=== PATIENT | female | born 1985 | race Two or more races ===

== ENCOUNTER 2019-01-09 16:55 | Outpatient (CLI) | payer BC, OTHER | END 2019-01-09 23:59 | disposition home or self-care (01) | LOC: LAB 16:55 | PROVIDERS: ATTEND Nurse Practitioner | DX: O20.9 Hemorrhage in early pregnancy, unspecified (principal); Z3A.00 Weeks of gestation of pregnancy not specified | CPT/HCPCS: 36415; 84702 ==

== ENCOUNTER 2019-01-13 12:04 | Emergency (ER) | payer OTHER ==
[~2019-01-13] VITALS: Ht 162.6 cm; Wt 99.2 kg
--- NOTE | 2019-01-13 12:31 | NUR ---
FIRST CONTACT WITH PT. Pt presents to ED from Obgyn Dr. Moody for medication for ectopic . Pt denies any pain at this time. NADN. Pt resting on gurney. Called L&D to verify administration of medication. L&D states ED administers medication. Pt states, "Dr. Moody wants the labs done first before recieving the methotrexate." ED PA aware. Call light within reach, all safety measures in place. Warm blanket and pillow offered for comfort measures.
--- NOTE | 2019-01-13 12:49 | NUR ---
Pt ambulates with steady gait and balance to restroom for UA.
[2019-01-13 12:58] LABS: BASOPHILS # (AUTO) 0.05 x10^3/uL (0-0.1); BASOPHILS % (AUTO) 1 % (0-1); EOSINOPHILS # (AUTO) 0.11 x10^3/uL (0-0.4); EOSINOPHILS % (AUTO) 2 % (1-7); LYMPHOCYTES # (AUTO) 3.39 x10^3/uL (1-3.4); LYMPHOCYTES % (AUTO) 46 % (22-44); MD NO; MEAN CORPUSCULAR HEMOGLOBIN 29.3 pg (27.0-34.8); MEAN CORPUSCULAR HGB CONC 33.3 g/dL (32.4-35.8); MEAN CORPUSCULAR VOLUME 87.8 fL (80-100); MEAN PLATELET VOLUME 7.9 fL (7.4-10.4); MONOCYTES # (AUTO) 0.48 x10^3/uL (0.2-0.8); MONOCYTES % (AUTO) 6 % (2-9); NEUTROPHILS # (AUTO) 3.39 x10^3/uL (1.8-6.8); NEUTROPHILS % (AUTO) 46 % (42-75); PLATELET COUNT 375 x10^3/uL (130-400); RED BLOOD COUNT 4.62 x10^6/uL (3.82-5.3); RED CELL DISTRIBUTION WIDTH 14.6 % (9.6-15.2)
[2019-01-13] MEDS ORDERED: SODIUM CHLORIDE FLUSH 10ML SYR IVF ONE (13:00)
[2019-01-13 13:08] LABS: ALBUMIN 3.6 g/dL (3.4-5.0); ANION GAP 7 mmol/L (5-15); CALCIUM 8.9 mg/dL (8.5-10.1); CHLORIDE 110 mmol/L (98-107)
[2019-01-13 13:14] LABS: CULTURE INDICATED? YES; MICROSCOPIC INDICATED
[2019-01-13 13:26] LABS: ALANINE AMINOTRANSFERASE 20 U/L (12-78); ALKALINE PHOSPHATASE 86 U/L (45-117); BILIRUBIN,TOTAL 0.4 mg/dL (0.2-1.0); CREATININE 0.73 mg/dL (0.55-1.02); TOTAL PROTEIN 7.2 g/dL (6.4-8.2)
[2019-01-13] MEDS ORDERED: METHOTREXATE/PF 25 MG/ML, 2ML IM ONE (14:00)
--- NOTE | 2019-01-13 14:03 | NUR ---
Contacted oncology floor to request chiller technician to administer medication per EMAR. Spoke to GRIS Pimentel, answered all questions, GRIS Pimentel to coordinate medication administration.
--- NOTE | 2019-01-13 14:20 | NUR ---
Oncology RNs at bedside providing medicaiton per EMAR to pt and answering all pt questions.
[2019-01-13 14:58] VITALS: BP 107/70
--- NOTE | 2019-01-13 14:58 | NUR ---
REPORT FROM GRIS KRAMER. PT SITTING UP IN [facility], NAD NOTED. NO S/S OF MEDICATION RXN NOTED. VS WNL. PT DENIES PAIN/NEED FOR PAIN OR NAUSEA MEDICATIONS. SO AT BEDSIDE. CHART UP FOR RECHECK, AWAITING DISPO
--- NOTE | 2019-01-13 15:20 | NUR ---
DC EDUCATION PROVIDED, PT DEMONSTRATES UNDERSTANDING. PT AMBULATED STEADILY TO DC WITH RN AND SO. SO TO TRANSPORT PT HOME.
== END 2019-01-13 15:22 | disposition home or self-care (01) ==
LOC: ED 13:29
DX: O00.109 Unspecified tubal pregnancy without intrauterine pregnancy (principal)
CPT/HCPCS: 36415; 80053; 81001; 84702; 85025; 87086; 96372; 99283; J9250

== ENCOUNTER 2019-12-10 20:08 | Outpatient (CLI) | payer OTHER ==
[2019-12-10 20:18] VITALS: BP 126/82
== END 2019-12-10 22:08 | disposition home or self-care (01) ==
LOC: LDOP 20:08
PROVIDERS: ATTEND Obstetrics & Gynecology
DX: O36.8130 Decreased fetal movements, third trimester, not applicable or unspecified (principal); Z3A.00 Weeks of gestation of pregnancy not specified
CPT/HCPCS: 59025; 76819; 99211; G0463

== ENCOUNTER 2020-01-12 21:05 | Inpatient (IN) | payer OTHER ==
[~2020-01-12] VITALS: Ht 165.1 cm; Wt 104.5 kg
[2020-01-12 21:10] VITALS: BP 112/73
[2020-01-12] MEDS ORDERED: D5%-LACTATED RINGERS 1,000 ML IV SCH (22:49)
[2020-01-12] MEDS ORDERED: OXYTOCIN 30U/ 0.9% NaCL 500ML 500 ML IV ONE (22:49)
[2020-01-12] MEDS ORDERED: ONDANSETRON 2MG/ML, 2ML IVPush PRN (23:00)
[2020-01-12] MEDS ORDERED: FENTANYL PF 100 MCG/2ML IVPush PRN (23:00)
[2020-01-12] MEDS ORDERED: TERBUTALINE 1 MG/ML, 1ML IVPush PRN (23:00)
[2020-01-12] MEDS ORDERED: CALCIUM CARBONATE 500 MG TAB.CHEW PO PRN (23:00)
[2020-01-12] MEDS ORDERED: FENTANYL PF 100 MCG/2ML IV PRN (23:00)
[2020-01-12] MEDS ORDERED: TERBUTALINE 1 MG/ML, 1ML SQ PRN (23:00)
[2020-01-12] MEDS ORDERED: FENTANYL PF 100 MCG/2ML ONE (23:05)
[2020-01-12] MEDS ORDERED: NEWBORN KIT ONE (23:05)
[2020-01-12] MEDS: LACTATED RINGERS 1,000 ML IV SCH (23:09)
[2020-01-12 23:30] LABS: BASOPHILS # (AUTO) 0.04 x10^3/uL (0-0.1); BASOPHILS % (AUTO) 0 % (0-1); EOSINOPHILS # (AUTO) 0.07 x10^3/uL (0-0.4); EOSINOPHILS % (AUTO) 1 % (1-7); LYMPHOCYTES # (AUTO) 2.47 x10^3/uL (1-3.4); LYMPHOCYTES % (AUTO) 28 % (22-44); MD NO; MEAN CORPUSCULAR HEMOGLOBIN 29.7 pg (27.0-34.8); MEAN CORPUSCULAR HGB CONC 32.7 g/dL (32.4-35.8); MEAN CORPUSCULAR VOLUME 90.9 fL (80-100); MEAN PLATELET VOLUME 8.2 fL (7.4-10.4); MONOCYTES # (AUTO) 0.61 x10^3/uL (0.2-0.8); MONOCYTES % (AUTO) 7 % (2-9); NEUTROPHILS # (AUTO) 5.51 x10^3/uL (1.8-6.8); NEUTROPHILS % (AUTO) 63 % (42-75); PLATELET COUNT 279 x10^3/uL (130-400); RED BLOOD COUNT 4.52 x10^6/uL (3.82-5.3); RED CELL DISTRIBUTION WIDTH 15.5 % (9.6-15.2)
[2020-01-12] MEDS ORDERED: FENTANYL/BUPIV./NS/PF 250 ML EPIDCONT SCH (23:41)
[2020-01-12] MEDS ORDERED: FENTANYL PF 500 MCG, BUPIVACAINE/PF 0.5%, 30ML 62.5 ML in SODIUM CHLORIDE 0.9% 177.5 ML EPIDCONT SCH (23:45)
[2020-01-13] MEDS ORDERED: BUPIVACAINE 0.25% ONE (00:10)
[2020-01-13] MEDS ORDERED: ONDANSETRON 2MG/ML, 2ML ONE (00:29)
[2020-01-13] MEDS ORDERED: EPHEDRINE 50 MG/ML, 1ML IVPush PRN (00:30)
[2020-01-13] MEDS ORDERED: LACTATED RINGERS 1,000 ML IV SCH (00:30)
[2020-01-13] MEDS ORDERED: LACTATED RINGERS 1,000 ML IVBOLUS PRN (00:30)
[2020-01-13] MEDS ORDERED: FENTANYL/BUPIV./NS/PF 250 ML EPIDCONT SCH (00:30)
[2020-01-13] MEDS ORDERED: OXYTOCIN 30U/ 0.9% NaCL 500ML 500 ML ONE ×2 (02:42→09:36)
[2020-01-13] MEDS ORDERED: OXYTOCIN 30U/ 0.9% NaCL 500ML 500 ML IV PRN (03:39)
[2020-01-13] MEDS: LACTATED RINGERS 1,000 ML IV SCH ×3 (06:49→22:49)
[2020-01-13] MEDS: OXYTOCIN 30U/ 0.9% NaCL 500ML 500 ML IV SCH ×2 (09:24→19:24)
[2020-01-13] MEDS ORDERED: ACETAMINOPHEN 325 MG TABLET PO PRN (09:30)
[2020-01-13] MEDS ORDERED: SIMETHICONE 80 MG CHEW TAB PO PRN (09:30)
[2020-01-13] MEDS ORDERED: MISOPROSTOL 200 MCG TABLET PO PRN (09:30)
[2020-01-13] MEDS ORDERED: ONDANSETRON 2MG/ML, 2ML IV PRN (09:30)
[2020-01-13] MEDS: PRENATAL VIT/IRON/FA 1 EACH TABLET PO SCH (09:30)
[2020-01-13 11:30] VITALS: BP 117/79
[2020-01-13] MEDS: OXYcodone/APAP 5/325MG TABLET PO PRN ×2 (11:35→20:23)
[2020-01-13 15:30] VITALS: BP 112/70
[2020-01-13] MEDS: IBUPROFEN 600 MG TABLET PO PRN ×2 (15:49→22:28)
[2020-01-13 16:37] LABS: BASOPHILS # (AUTO) 0.07 x10^3/uL (0-0.1); BASOPHILS % (AUTO) 1 % (0-1); EOSINOPHILS # (AUTO) 0.05 x10^3/uL (0-0.4); EOSINOPHILS % (AUTO) 0 % (1-7); LYMPHOCYTES # (AUTO) 2.49 x10^3/uL (1-3.4); LYMPHOCYTES % (AUTO) 21 % (22-44); MD NO; MEAN CORPUSCULAR HEMOGLOBIN 29.8 pg (27.0-34.8); MEAN CORPUSCULAR VOLUME 90.5 fL (80-100); MEAN PLATELET VOLUME 7.9 fL (7.4-10.4); MONOCYTES # (AUTO) 0.75 x10^3/uL (0.2-0.8); MONOCYTES % (AUTO) 6 % (2-9); NEUTROPHILS % (AUTO) 72 % (42-75); PLATELET COUNT 235 x10^3/uL (130-400); RED BLOOD COUNT 4.27 x10^6/uL (3.82-5.3); RED CELL DISTRIBUTION WIDTH 15.5 % (9.6-15.2)
[2020-01-13 19:30] VITALS: BP 107/69
[2020-01-13] MEDS: DOCUSATE 100 MG CAPSULE PO PRN (20:23)
[2020-01-14 00:10] VITALS: BP 110/71
[2020-01-14] MEDS: OXYcodone/APAP 5/325MG TABLET PO PRN ×2 (00:24→08:00)
[2020-01-14 04:30] VITALS: BP 105/68
[2020-01-14] MEDS: OXYTOCIN 30U/ 0.9% NaCL 500ML 500 ML IV SCH (05:24)
[2020-01-14] MEDS: LACTATED RINGERS 1,000 ML IV SCH (06:49)
[2020-01-14] MEDS: DOCUSATE 100 MG CAPSULE PO PRN (07:59)
[2020-01-14] MEDS: IBUPROFEN 600 MG TABLET PO PRN (07:59)
[2020-01-14] MEDS: PRENATAL VIT/IRON/FA 1 EACH TABLET PO SCH (07:59)
[2020-01-14 08:00] VITALS: BP 118/80
[2020-01-14] MEDS ORDERED: IBUP-1222 PO (11:55)
[2020-01-14] MEDS ORDERED: MEASLES,MUMPS&RUBELLA VACC/PF 0.5 ML SQ-VACC ONE (12:00)
== END 2020-01-14 13:00 | disposition home or self-care (01) | DRG 807 ==
LOC: LDOP 21:05 → LDIP 22:56 → 2NW 01-13 11:15
PROVIDERS: ADMIT Obstetrics & Gynecology; ATTEND Obstetrics & Gynecology
PROC: 10E0XZZ Delivery of Products of Conception, External Approach (ICD-10-PCS; principal; 2020-01-13)
PROC: 0KQM0ZZ Repair Perineum Muscle, Open Approach (ICD-10-PCS; 2020-01-13)
PROC: 10907ZC Drainage of Amniotic Fluid, Therapeutic from Products of Conception, Via Natural or Artificial Opening (ICD-10-PCS; 2020-01-13)
PROC: 3E0R3BZ Introduction of Anesthetic Agent into Spinal Canal, Percutaneous Approach (ICD-10-PCS; 2020-01-13)
PROC: 00HU33Z Insertion of Infusion Device into Spinal Canal, Percutaneous Approach (ICD-10-PCS; 2020-01-13)
DX: O69.81X0 Labor and delivery complicated by cord around neck, without compression, not applicable or unspecified (principal); Z37.0 Single live birth; Z3A.40 40 weeks gestation of pregnancy; O70.1 Second degree perineal laceration during delivery
CPT/HCPCS: 36415; S0020; 85025; 86592; 86850; 86900; G0378; J2405; J3010; J7050; J7120